=== PATIENT | male | born 1980 | race African-American/Black ===

== ENCOUNTER 2024-04-18 18:54 | Emergency (ER) | payer BC ==
[~2024-04-18] VITALS: Ht 185.4 cm; Wt 91.0 kg
[2024-04-18 19:04] VITALS: O2SAT 100
[2024-04-18] MEDS ORDERED: IBUP-2029 MT (20:16)
[2024-04-18 21:06] VITALS: BP 131/70; PULSE 99; RESP 18; TEMP 36.78072; O2SAT 100
== END 2024-04-18 21:06 | disposition home or self-care (01) ==
LOC: ER 18:54
DX: S82.51XA Displaced fracture of medial malleolus of right tibia, initial encounter for closed fracture (principal); W18.39XA Other fall on same level, initial encounter; Y93.89 Activity, other specified; Y92.89 Other specified places as the place of occurrence of the external cause; Y99.8 Other external cause status
CPT/HCPCS: 73600; 29505; 99283; Z7610